=== PATIENT | male | born 1970 | race Caucasian/White ===

== ENCOUNTER 2025-05-27 12:43 | Emergency (ER) | payer BC, SELFPAY ==
--- NOTE | ~2025-05-27 | XR_ITS ---
CHEST RADIOGRAPH, PA AND LATERAL CLINICAL HISTORY: heart flutter X SEVERAL DAYS HX CONTROLLED IRR B.P. . COMPARISON: None available TECHNIQUE: PA and lateral views of the chest. FINDINGS The cardiomediastinal silhouette is unremarkable. The lungs are clear. IMPRESSION: No focal infiltrate or effusion. Reviewed, dictated and finalized at location A.
--- NOTE | 2025-05-27 12:56 | ECG_ITS ---
Test Date: 2025-05-27 13:08:52 Measurements Intervals [place] Rate: 95 P: 62 WV: 176 QRS: 58 QRSD: 88 T: 21 QT: 349 QTc: 439 Interpretive Statements SINUS RHYTHM LEFT ATRIAL ENLARGEMENT [-0.15mV P-WAVE IN V1/V2] POSSIBLE RIGHT VENTRICULAR CONDUCTION DELAY [RSR (QR) IN V1/V2] No previous ECG available for comparison Electronically Signed On 05-27-2025 22:14:21 CDT by Evangelist Baltazar M.D.
[2025-05-27 13:00] VITALS: BP 168/104; PULSE 102; RESP 18; TEMP 36.8; O2SAT 100
[2025-05-27] MEDS: SODIUM CHLORIDE 0.9% IV 1,000 ML 999 ML IV CONT (13:23)
[2025-05-27 13:26] LABS: Hematocrit 42.6 % (42.0-52.0); Hemoglobin 14.5 g/dL (14.0-18.0); Immature Granulocyte Percent A 6.2 % (0-0.5); Lymphocytes Absolute Auto 1.96 K/mm3 (0.9-3.2); Mean Corpuscular HGB Conc 34.0 g/dl (32-36); Mean Corpuscular Hemoglobin 33.0 pg (26-34); Mean Corpuscular Volume 97.0 fl (80-100); Nucleated Red Blood Cells Absolute Auto 0.000 K/mm3 (0.0-0.012); Nucleated Red Blood Cells Perc 0.0 % (0.0-0.2); Platelet Count Result 310 k/mm3 (150-375); Red Blood Count 4.39 M/mm3 (4.6-6.20); White Blood Count 10.3 K/mm3 (4.5-10.0)
[2025-05-27 13:30] VITALS: BP 156/100; PULSE 92; RESP 21; O2SAT 98
[2025-05-27 13:35] LABS: Alanine Aminotransferase 37 U/L (6-50); Albumin Level 4.4 g/dL (3.5-5.1); Alkaline Phosphatase 58 U/L (38-126); Anion Gap 8 mmol/L (4-12); Aspartate Amino Transferase 40 U/L (17-59); Bilirubin,Total 0.3 mg/dL (0.2-1.3); Blood Urea Nitrogen 11 mg/dL (9-20); Calcium 9.6 mg/dL (8.4-10.2); Carbon Dioxide 26 mmol/L (22-30); Chloride 100 mmol/L (98-107); Estimated CRCL calculation 105 ml/min; Estimated Glomerular Filt Rate > 60; Glucose 113 mg/dL (65-110); Lipase 65 U/L (23-300); Potassium 3.7 mmol/L (3.4-5.0); Sodium 134 mmol/L (137-145); Total Protein 7.3 g/dL (6.3-8.2)
[2025-05-27 13:38] LABS: INR 1.0; Prothrombin Time 13.4 Seconds (11.1-14.7)
[2025-05-27 13:39] LABS: Partial Thromboplastin Time 25.7 Seconds (22.3-36.8)
[2025-05-27 13:48] LABS: Troponin I < 0.012 ng/mL (0.000-0.034)
[2025-05-27 14:02] LABS: Schistocytes None Seen
--- OUTSIDE RECORDS SUMMARY | 2025-05-27 14:04 | XMS_ITS | Clinical Summary ---
Author Organization [email or web address] Address [address] [place] [address] Care Team Providers Care Broth Mixer Name Role Phone Greg Hughes MD Primary Care Provider [phone] Source Comments [email or web address],non-owned Affiliates and Associated Physician Practices is amultiple site organization consisting of ambulatory clinics and hospital sitesin [place], [place], [place]. This disclosure is being madepursuant to the Care Everywhere program and may not contain all information available regarding this patient. Last updated 18.[email or web address] Allergies No known active allergies Medications * Be aware that medications may not be up to date on this document. Alwaysverify current medications with the patient. bacitracin ointment Apply to affected area 3 times daily 30 g 05/08/2022 Active Immunizations Immunization Administration Dates Next Due TDAP (7yrs+) 05/08/2022 Social History Tobacco Use Types Packs/Day Years Used Date Smoking Tobacco: Never Smokeless Tobacco: Never Alcohol Use Standard Drinks/Week Comments Yes 0 (1 standard drink = 0.6 oz pur e alcohol) 3 drinks per day Sex and Gender Information Value Date Recorded Sex Assigned at Not on file Legal Sex Male 11:02 AM CDT Gender Identity Not on file Sexual Orientation Not on file Last Filed Vital Signs Vital Sign Reading Time Taken Comments Blood Pressure 168/114 05/08/2022 6:24 PM CDT Pulse 103 05/08/2022 6:04 PM CDT Temperature 37.6 C (99.7 F) 05/08/2022 11:14 AM CDT Respiratory Rate 29 05/08/2022 6:04 PM CDT Oxygen Saturation 97% 05/08/2022 6:04 PM CDT Inhaled Oxygen Concentration - - Weight 86.2 kg (190 lb) 05/08/2022 11:13 AM CDT Height 188 cm (6' 2) 05/08/2022 11:13 AM CDT Body Mass Index 24.39 05/08/2022 11:13 AM CDT Plan of Treatment Health Maintenance Due Date Last Done Comments COLOGUARD (AGES 45-75) - COL ON CA SCREENING 1968 COLON MONITORING 1968 COLONOSCOPY - COLON CA SCREENING 1968 CT COLONOGRAPHY - COLON CA SCREENING 1968 Colorectal Cancer Screening 1968 FIT - COLON CA SCREENING 1968 FLEX SIG - COLON CA SCREENING 1968 HIV SCREENING 1983 HEPATITIS C SCREENING 06/12/1986 HEPATITIS B VACCINE (1 of 3 - 19+ 3-dose series) 1987 PNEUMOCOCCAL VACCINE 50+ (1 of 1 - PCV) 2018 ZOSTER VACCINE (1 of 2) 2018 COVID-19 VACCINE (3 - 2023-2 5 season) 2024 02/20/2021, 01/23/2021 DEPRESSION SCREENING 11/21/2024 INFLUENZA VACCINE (#1) 2025 01/13/2021 LIPID TESTING 04/05/2027 04/05/2022 DTAP/TDAP/TD VACCINES (2 - T d or Tdap) 05/08/2032 05/08/2022 HIB VACCINE Aged Out No longer eligi ble based on patient's age to complete this topic HPV VACCINE Aged Out No longer eligi ble based on patient's age to complete this topic MENINGOCOCCAL (Group B) VACCINE SHARED DECISION-MAKING Aged Out No longer eligible based on patient's age to complete this topic MENINGOCOCCAL GROUPS A/C/Y/W VACCINE Aged Out No longer eligible b ased on patient's age to complete this topic Insurance [employer] Care Teams Broth Mixer Relationship Specialty Start Date End Date Greg Hguhes MD PCP - General Internal Medicine 05/08/22
--- OUTSIDE RECORDS SUMMARY | 2025-05-27 14:04 | XMS_ITS | Encounter Summary ---
Author Organization [facility] Address [address] [place] [address] Care Team Providers Care Ice Delivery Driver Name Role Phone Greg Hughes MD Primary Care Provider [phone] Encounter Details Date Type Department Care Team (Late st Contact Info) Description 05/08/2022 Ophth Exam [facility] [address] [place] [address] Gorge Leggett , DO [address] [place] [address] Social History Tobacco Use Types Packs/Day Years [...] on file Sexual Orientation Not on file documented as of this encounter Plan of Treatment Not on file documented as of this encounter Visit Diagnoses Not on filedocumented in this encounter Care Teams Ice Delivery Driver Relationship Specialty Start Date End Date Greg Hughes MD PCP - General Internal Medicine 05/08/22 documented as of this encounter
[2025-05-27 14:20] VITALS: BP 155/107; PULSE 91; RESP 18; TEMP 36.9; O2SAT 99
--- NOTE | 2025-05-27 14:33 | ED.ARRPALP ---
HPI - Arrhythmia/Palpitations General Chief Complaint: Arrhythmia/Palpitations Stated Complaint: elevated heart rate, fluttering Time Seen by Provider: 05/27/25 12:53 History of Present Illness HPI narrative: Pt presents with noticing heart beat was fast l;ast night when lying in bed. HR was about 100. Pt also felt that his heart was beating funny. Pt denies Cp or SOB. Related Data Allergies Allergy/AdvReac Type Severity Reaction Status Date / Time No Known Allergies Allergy Verified 05/27/25 13:05 Review of Systems Review of Systems: All systems reviewed & are unremarkable except as noted in HPI and below Exam Const: General: healthy appearing and no acute distress Nutritional Appearance: well nourished Orientation/consciousness: patient oriented x3 Limitations: no limitations HENMT: Head: normal to inspection Eyes: Pupils: Equal, round and reactive pupils present EOM: EOMs intact bilaterally Neck: Neck: normal visual inspection Chest: Chest palpation & inspection: normal inspection of the chest Resp: Effort & Inspection: normal respiratory effort Auscultation: clear to auscultation bilaterally Cardio: Rate: regular rate Rhythm: regular rhythm GI: GI Palp: Yes Soft to palpation and No Tenderness to palpation present (GI) Auscultation: normal bowel sounds Back/Spine/Pelvis: Back: no CVA tenderness Skin: General skin exam: normal color Neuro: General: patient oriented x3 and moves all extremities Cranial nerves: Yes Nystagmus not present Extrem: General: normal to inspection and no clubbing, cyanosis or edema Psych: Mental Status: mental status grossly normal Affect: normal affect Attitude: cooperative Course Vital Signs Vital signs: Vital Signs Temperature 98.2 F 05/27/25 13:00 Pulse Rate 102 H 05/27/25 13:00 Respiratory Rate 18 05/27/25 13:00 Blood Pressure 168/104 H 05/27/25 13:00 Pulse Oximetry 100 05/27/25 13:00 Oxygen Delivery Room Air 05/27/25 13:00 Temperature 98.5 F 05/27/25 14:20 Pulse Rate 87 05/27/25 15:20 Respiratory Rate 18 05/27/25 15:20 Blood Pressure 161/104 H 05/27/25 15:20 Pulse Oximetry 100 05/27/25 15:20 Oxygen Delivery Room Air 05/27/25 13:00 MDM - Arrhythmia/Palpitations MDM Narrative Medical decision making narrative: Pt has some mild tachycardia in 100's and is a bit anxious. Pt had a pvc on monitor and is likely what he is feeling. will check labs to rule out cardiac injury and electrolyte issues and give some fluids. labs look ok cxr unremarkable. ekg tachycardia mild but no st or t wave changes. will send home. Lab Data 05/27/25 13:10 05/27/25 13:10 Labs: Lab Results 05/27/25 Range/Units 13:10 WBC 10.3 H (4.5-10.0) K/mm3 RBC 4.39 L (4.6-6.20) M/mm3 Hgb 14.5 (14.0-18.0) g/dL Hct 42.6 (42.0-52.0) % MCV 97.0 (80-100) fl MCH 33.0 (26-34) pg MCHC 34.0 (32-36) g/dl RDW 11.8 (11.5-14.5) % Plt Count 310 (150-375) k/mm3 MPV 9.5 (7.4-10.4) fl Immature Gran % (Auto) 6.2 H (0-0.5) % Neut % (Auto) 65.1 (45.5-73.1) % Lymph % (Auto) 19.1 (18.3-44.2) % [place] % (Auto) 8.9 H (2.6-8.5) % Eos % (Auto) 0.2 (0-4.4) % Baso % (Auto) 0.5 (0.2-1.2) % Lymph # (Auto) 1.96 (0.9-3.2) K/mm3 [place] # (Auto) 0.9 H (0.1-0.6) K/mm3 Eos # (Auto) 0.0 (0-0.3) K/mm3 Baso # (Auto) 0.1 (0.0-0.1) K/mm3 Abs Immat Gran (auto) 0.64 H (0.00-0.031) K/mm3 Absolute Neuts (auto) 6.7 (1.3-6.7) K/mm3 Absolute Nucleated RBC 0.000 (0.0-0.012) K/mm3 Band Neutrophils % Not Reportable Nucleated RBC % 0.0 (0.0-0.2) % Atypical Lymphocytes Present Platelet Estimate Adequate (Adequate) Schistocytes None seen PT 13.4 (11.1-14.7) Seconds INR 1.0 APTT 25.7 (22.3-36.8) Seconds Sodium 134 L (137-145) mmol/L Potassium 3.7 (3.4-5.0) mmol/L Chloride 100 (98-107) mmol/L Carbon Dioxide 26 (22-30) mmol/L Anion Gap 8 (4-12) mmol/L BUN 11 (9-20) mg/dL Creatinine 0.77 (0.7-1.3) mg/dL Estim Creat Clear Calc 105 ml/min Estimated GFR > 60 (59 - ) Glucose 113 H (65-110) mg/dL Calcium 9.6 (8.4-10.2) mg/dL Total Bilirubin 0.3 (0.2-1.3) mg/dL AST 40 (17-59) U/L ALT 37 (6-50) U/L Alkaline Phosphatase 58 (38-126) U/L Troponin I < 0.012 (0.000-0.034) ng/mL Total Protein 7.3 (6.3-8.2) g/dL Albumin 4.4 (3.5-5.1) g/dL Lipase 65 (23-300) U/L Discharge Plan Discharge Clinical Impression: Palpitations Patient Disposition: Home Condition: Stable Instructions: Antibiotic Form, Heart Palpitations (DC) Additional Instructions: limit caffeine intake drink lotsw of water. if symptoms persist, follow up with PCP. Patient Language: [place] Follow-up/Referrals: PHYSICIAN,[facility] [Primary Care Provider] -
[2025-05-27 15:20] VITALS: BP 161/104; PULSE 87; RESP 18; O2SAT 100
== END 2025-05-27 15:29 | disposition home or self-care (01) ==
PROVIDERS: Emergency Provider Emergency Medicine
DX: R00.2 Palpitations (principal); R94.31 Abnormal electrocardiogram [ECG] [EKG]
CPT/HCPCS: 36415; 71046; 80053; 83690; 84484; 85025; 85610; 85730; 93005; 96360; 99284; J7030